=== PATIENT | female | born 1960 | race Caucasian/White ===

== ENCOUNTER 2021-10-13 22:47 | Emergency (ER) | payer BC, OTHER ==
[~2021-10-13] VITALS: Ht 162.6 cm; Wt 70.3 kg
[2021-10-13 23:09] VITALS: BP_SYST 174
[2021-10-13] MEDS ORDERED: PRO40 PO (23:33)
[2021-10-13] MEDS ORDERED: METO50TA7 PO (23:34)
[2021-10-14 00:06] LABS: BILIRUBIN,URINE NEGATIVE (NEGATIVE); BLOOD, URINE NEGATIVE (NEGATIVE); CLARITY/URINE CLEAR (CLEAR); COLOR,URINE YELLOW (YELLOW); GLUCOSE,URINE NEGATIVE (NEGATIVE); KETONES,URINE NEGATIVE (NEGATIVE); LEUKOCYTE ESTERASE ,URINE TRACE (NEGATIVE); NITRITE, URINE NEGATIVE (NEGATIVE); PROTEIN URINE 1+ (NEGATIVE); UROBILINOGEN,URINE 0.2 (0.2-1.0)
[2021-10-14] MEDS ORDERED: NACL 0.9% 1,000 ML IV ONE ×2 (00:15→04:15)
[2021-10-14] MEDS ORDERED: LORazepam 2 MG/ML VIAL IVP ONE (00:15)
[2021-10-14 00:18] LABS: BARBITURATE, URINE NEGATIVE (NEG <=200); BENZODIAZEPINE, URINE NEGATIVE (NEG <=150); CANNABINOID, URINE POSITIVE (NEG <=50); COCAINE, URINE NEGATIVE (NEG <=150); METHAMPHETAMINES SCREEN,URINE NEGATIVE (NEG <=500); OPIATE, URINE NEGATIVE (NEG <=100); PHENCYCLIDINE SCREEN,URINE NEGATIVE (NEG <=25); UR TRICYCLIC ANTIDEPRESSANTS NEGATIVE (NEG <=300); URINE AMPHETAMINE POSITIVE (NEG <=500); URINE METHADONE NEGATIVE (NEG <=200); URINE OXYCODONE SCREEN NEGATIVE (NEG <=100); URINE PROPOXYPHENE SCREEN NEGATIVE (NEG <=300)
[2021-10-14 01:17] LABS: BASOPHILS # (AUTO) 0.1 K/uL (0.0-0.2); EOSINOPHILS # (AUTO) 0.1 K/uL (0.0-0.4); EOSINOPHILS % (AUTO) 1.1 % (0.0-4.0); HEMATOCRIT 42.3 % (36-48); HEMOGLOBIN 14.4 g/dL (12.0-16.0); LYMPHOCYTES # (AUTO) 0.8 K/uL (1.0-5.5); LYMPHOCYTES % (AUTO) 15.5 % (20.5-51.5); MEAN CORPUSCULAR HEMOGLOBIN 31 pg (27-31); MEAN CORPUSCULAR HGB CONC 34 % (32-36); MEAN CORPUSCULAR VOLUME 90 fL (79.0-98.0); MONOCYTES # (AUTO) 0.5 K/uL (0.0-1.0); MONOCYTES % (AUTO) 10.7 % (1.7-9.3); NEUTROPHILS # (AUTO) 3.6 K/uL (1.8-7.7); NEUTROPHILS % (AUTO) 71.7 % (40.0-70.0); PLATELET COUNT (AUTO) 203 K/uL (130-430); RED BLOOD CELL COUNT(AUTO) 4.71 MIL/uL (4.2-6.2); RED CELL DISTRIBUTION WIDTH 13.1 % (9.0-15.0)
[2021-10-14 01:22] LABS: POTASSIUM 4.3 mmol/L (3.5-5.1); SODIUM SERUM 131 mmol/L (136-145)
[2021-10-14 01:23] LABS: ANION GAP 9 (5-15); CHLORIDE 96 mmol/L (98-107); GLUCOSE 165 mg/dL (70-99); UREA NITROGEN, BLOOD 12 mg/dL (8-21)
[2021-10-14 01:24] LABS: ASPARTATE AMINOTRANSFERASE 42 U/L (10-37); CREATININE 0.69 mg/dL (0.55-1.30); GFR AFRICAN AMERICAN 111 mL/min (>90)
[2021-10-14 01:25] LABS: ALANINE AMINOTRANSFERASE 39 U/L (12-78); ALBUMIN 3.5 g/dL (3.4-4.8); TOTAL BILIRUBIN 0.4 mg/dL (0.0-1.0)
[2021-10-14 01:27] LABS: ALCOHOL, BLOOD < 3 mg/dL (<10)
[2021-10-14 03:32] LABS: BACTERIA,URINE None Seen /HPF (None Seen); RBC,URINE 0-3 /HPF (0-3)
[2021-10-14 03:33] LABS: TRICHOMONAS,URINE None Seen /HPF (None Seen); YEAST,URINE Rare /HPF (None Seen)
[2021-10-14 03:34] LABS: CALCIUM OXALATE CRYSTALS,UR None Seen /HPF (None Seen); CALCIUM PHOSPHATE CRYSTALS,UR None Seen /HPF (None Seen); COARSE GRANULAR CASTS,URINE None Seen /LPF (None Seen); FINE GRANULAR CASTS,URINE None Seen /LPF (None Seen); OTHER CRYSTALS,URINE None Seen /HPF (None Seen); TRIPLE PHOSPHATE CRYSTAL,UR None Seen /HPF (None Seen); URIC ACID CRYSTALS,URINE None Seen /HPF (None Seen); URINE AMORPHOUS PHOSPHATES None Seen /HPF (None Seen); URINE AMORPHOUS URATE None Seen /HPF (None Seen)
[2021-10-14 03:35] LABS: HYALINE CASTS, URINE 0-10 /LPF (None Seen); MUCUS,URINE None Seen /LPF (None Seen); OTHER CASTS, URINE None Seen /LPF (None Seen); WAXY CASTS,URINE None Seen /LPF (None Seen)
[2021-10-14] MEDS ORDERED: LORazepam 1 MG TABLET PO ONE (04:00)
[2021-10-14 06:57] VITALS: BP_SYST 121
== END 2021-10-14 06:58 | disposition home or self-care (01) ==
LOC: SED 22:47
DX: T40.711A Poisoning by cannabis, accidental (unintentional), initial encounter (principal); Z79.899 Other long term (current) drug therapy; Y92.89 Other specified places as the place of occurrence of the external cause
CPT/HCPCS: 36415; 80053; 80307; 81000; 85025; 93005; 96361; 96374; 99285; G0482; J2060; J7030; 99284